=== PATIENT | male | born 1965 | race Caucasian/White ===

== ENCOUNTER 2018-04-20 08:24 | Day surgery (SDC) | payer MEDICARE ==
[~2018-04-20] VITALS: Ht 170.2 cm; Wt 81.9 kg
[~2018-04-20 08:24] MED LIST: 00186-0372-20 IH; CENTRUM SILVER1 CTB PO; EYE DROP OU; LIORESAL 1010 MG/TAB PO; NORCO 325 MG-7.1 TAB PO; OXYCONTIN 10MG10 MG PO; OXYCONTIN30 MG PO; RT SPIRIVA18 MCG IH; VENTOLIN0.09 MG IH
[2018-04-20] MEDS ORDERED: BUSPAR DIVIDOSE15 MG PO (08:45)
[2018-04-20] MEDS ORDERED: BENTYL 10MG10 MG/CAP PO (08:46)
[2018-04-20] MEDS ORDERED: ARTHROTEC 775 MG/TAB PO (08:46)
[2018-04-20] MEDS ORDERED: NEURONTIN100 MG/CAP PO (08:47)
[2018-04-20] MEDS ORDERED: PRILOSEC 20MG20 MG PO (08:47)
[2018-04-20] MEDS ORDERED: PROBIOTIC FORMU1 CAP PO (08:48)
[2018-04-20] MEDS ORDERED: XALATAN EYE DROPS OD (08:48)
[2018-04-20 09:15] VITALS: BP 117/90; PULSE 61; TEMP 99
[2018-04-20 10:30] VITALS: BP 134/86; PULSE 58; TEMP 97.5
[2018-04-20 10:45] VITALS: BP 127/78; PULSE 55
[2018-04-20 11:00] VITALS: BP 134/92; PULSE 51
== END 2018-04-20 11:25 | disposition home or self-care (01) ==
LOC: SDCO 08:24
DX: K63.5 Polyp of colon (principal); K57.30 Diverticulosis of large intestine without perforation or abscess without bleeding; K64.8 Other hemorrhoids; K29.30 Chronic superficial gastritis without bleeding; K21.9 Gastro-esophageal reflux disease without esophagitis; A04.72 Enterocolitis due to Clostridium difficile, not specified as recurrent; J44.9 Chronic obstructive pulmonary disease, unspecified; G89.29 Other chronic pain; M54.9 Dorsalgia, unspecified
CPT/HCPCS: J2704; J3010; J7030

== ENCOUNTER → 2020-03-26 | Outpatient (CLI) | payer MEDICARE, MEDICAID ==
[~2020-03-26] MED LIST changes: +ARTHROTEC 775 MG/TAB PO; +BENTYL 10MG10 MG/CAP PO; +BUSPAR DIVIDOSE15 MG PO; +NEURONTIN100 MG/CAP PO; +PRILOSEC 20MG20 MG PO; +PROBIOTIC FORMU1 CAP PO; +XALATAN EYE DROPS OD
== END ==
LOC: COL.RAD 11:08
DX: M47.27 Other spondylosis with radiculopathy, lumbosacral region (principal); M51.17 Intervertebral disc disorders with radiculopathy, lumbosacral region; M51.14 Intervertebral disc disorders with radiculopathy, thoracic region

== ENCOUNTER → 2020-05-08 | Outpatient (CLI) | payer MEDICARE, MEDICAID | LOC: MHCPAIN 07:54 | DX: M47.817 Spondylosis without myelopathy or radiculopathy, lumbosacral region (principal); M54.5 Low back pain; M53.3 Sacrococcygeal disorders, not elsewhere classified; G89.29 Other chronic pain; M54.16 Radiculopathy, lumbar region | CPT/HCPCS: G0463 ==

== ENCOUNTER → 2020-05-17 | Outpatient (CLI) | payer MEDICARE, MEDICAID | LOC: MHCPAIN 08:07 | DX: M47.817 Spondylosis without myelopathy or radiculopathy, lumbosacral region (principal); M54.16 Radiculopathy, lumbar region | CPT/HCPCS: J1100; Q9967 ==

== ENCOUNTER → 2021-02-05 | Outpatient (CLI) | payer MEDICARE, MEDICAID | LOC: MHCPAIN 12:47 | DX: M47.817 Spondylosis without myelopathy or radiculopathy, lumbosacral region (principal); M54.5 Low back pain; M53.3 Sacrococcygeal disorders, not elsewhere classified; G89.29 Other chronic pain | CPT/HCPCS: G0463 ==

== ENCOUNTER → 2021-02-11 | Outpatient (CLI) | payer MEDICARE, MEDICAID | LOC: MHCPAIN 12:01 | DX: M47.817 Spondylosis without myelopathy or radiculopathy, lumbosacral region (principal); M54.5 Low back pain; M53.3 Sacrococcygeal disorders, not elsewhere classified ==

== ENCOUNTER → 2021-03-25 | Outpatient (CLI) | payer MEDICARE, MEDICAID | LOC: MHCPAIN 09:49 | DX: M70.62 Trochanteric bursitis, left hip (principal); M25.552 Pain in left hip; M54.5 Low back pain; M53.3 Sacrococcygeal disorders, not elsewhere classified | CPT/HCPCS: G0463 ==

== ENCOUNTER → 2021-04-02 | Outpatient (CLI) | payer MEDICARE, MEDICAID | LOC: MHCPAIN 08:55 | DX: M70.62 Trochanteric bursitis, left hip (principal); M25.552 Pain in left hip; M79.18 Myalgia, other site; M54.5 Low back pain; M53.3 Sacrococcygeal disorders, not elsewhere classified | CPT/HCPCS: J1040 ==

== ENCOUNTER → 2022-10-15 | Outpatient (CLI) | payer MEDICARE, MEDICAID ==
[~2022-10-15] MED LIST changes: +ALBUTEROL0.83 MG/ML IH; +CARAFATE 1GM1 G PO; +DUPIXENT300 MG/2 M SQ; +PERIDEX (CHLOR480 ML MM; +PROTONIX 40MG T40 MG PO; +SYNTHROID0.075 MG/T PO; +TRELEGY ELLIPT1 EACH IH
== END ==
LOC: COL.RAD 08:00
DX: N28.89 Other specified disorders of kidney and ureter (principal); J98.09 Other diseases of bronchus, not elsewhere classified; J98.4 Other disorders of lung
CPT/HCPCS: Q9967

== ENCOUNTER 2022-10-21 07:56 | Day surgery (SDC) | payer MEDICARE, MEDICAID ==
[~2022-10-21] VITALS: Ht 170.2 cm; Wt 68.2 kg
[~2022-10-21 07:56] MED LIST changes: -ALBUTEROL0.83 MG/ML IH; -CARAFATE 1GM1 G PO; -DUPIXENT300 MG/2 M SQ; -PERIDEX (CHLOR480 ML MM; -PROTONIX 40MG T40 MG PO; -SYNTHROID0.075 MG/T PO; -TRELEGY ELLIPT1 EACH IH
[2022-10-21] MEDS ORDERED: SYNTHROID0.075 MG/T PO (08:43)
[2022-10-21] MEDS ORDERED: PERIDEX (CHLOR480 ML MM (08:44)
[2022-10-21] MEDS ORDERED: TRELEGY ELLIPT1 EACH IH (08:44)
[2022-10-21] MEDS ORDERED: PROTONIX 40MG T40 MG PO (08:45)
[2022-10-21] MEDS ORDERED: CARAFATE 1GM1 G PO (08:45)
[2022-10-21] MEDS ORDERED: DUPIXENT300 MG/2 M SQ (08:46)
[2022-10-21] MEDS ORDERED: ALBUTEROL0.83 MG/ML IH (08:47)
[2022-10-21 09:07] VITALS: BP 124/90; PULSE 79; TEMP 97.8
[2022-10-21 09:55] VITALS: BP 111/74; PULSE 65; TEMP 97.6
--- NOTE | 2022-10-21 09:55 | NUR ---
PATIENT AMBULATED TO RESTROOM FOLLOWING PROCEDURE, GAIT STEADY. PATIENT ALERT AND ORIENTED, DENIES PAIN AND NAUSEA. PATIENT VERBALIZED PASSING GAS AND MUCOUS IN RESTROOM. AMBULATED WITH STEADY GAIT TO CHAIR. BREATHING REGULAR AND UNLABORED. SEE CHART FOR VITAL SIGNS. PATIENT HAD WATER AND CHOCOLATE PUDDING, BOTH TOLERATED WELL WITH NO DYSPHAGIA. VISITED WITH PATIENT IN THE ROOM TO DISCUSS PROCEDURE. CALL LIGHT IN REACH.
[2022-10-21 10:00] VITALS: BP 125/91; PULSE 58
[2022-10-21 10:15] VITALS: BP 119/74; PULSE 60
[2022-10-21 10:30] VITALS: BP 115/69; PULSE 59
--- NOTE | 2022-10-21 10:30 | NUR ---
PATIENT DENIES PAIN AND NAUSEA. DISCHARGE TEACHING COMPLETED WITH PRINTED EDUCATION AND INSTRUCTIONS SENT HOME WITH PATIENT. PATIENT SPOUSE BRADY PRESENT, BOTH VERBALIZED UNDERSTANDING OF TEACHING. IV REMOVED. PATIENT DISCHARGED HOME WITH BRADY TRANSPORT.
== END 2022-10-21 10:53 | disposition home or self-care (01) ==
LOC: SDCO 07:56
DX: K29.31 Chronic superficial gastritis with bleeding (principal); D12.0 Benign neoplasm of cecum; K64.0 First degree hemorrhoids; Z87.891 Personal history of nicotine dependence; K21.9 Gastro-esophageal reflux disease without esophagitis; Z79.899 Other long term (current) drug therapy; Z28.310 Unvaccinated for COVID-19; Z28.9 Immunization not carried out for unspecified reason
CPT/HCPCS: J2704; J7120

== ENCOUNTER 2023-10-06 06:35 | Day surgery (SDC) | payer MEDICARE, MEDICAID ==
[~2023-10-06] VITALS: Ht 170.2 cm; Wt 62.5 kg
[2023-10-06] VITALS (11 sets, daily range): BP systolic 98–142; BP diastolic 59–96; PULSE 56–98; TEMP 97.2–99.3
[~2023-10-06 06:35] MED LIST changes: +ALBUTEROL0.83 MG/ML IH; +Acetaminophen 500 MG TAB PO SCH; +CARAFATE 1GM1 G PO; +Celecoxib 200 MG CAP PO SCH; +DUPIXENT300 MG/2 M SQ; +Famotidine 20 MG TAB PO SCH; +Gabapentin 100 MG CAP PO SCH; +LR 1,000 ML IV SCH; +Meclizine 25 MG TAB PO SCH; +PERIDEX (CHLOR480 ML MM; +PROTONIX 40MG T40 MG PO; +SYNTHROID0.075 MG/T PO; +TRELEGY ELLIPT1 EACH IH; +diazePAM 10 MG TAB PO SCH
[2023-10-06] MEDS ORDERED: fentaNYL 50 MCG/ML 5 ML VIAL ONE (06:54)
[2023-10-06] MEDS ORDERED: Rocuronium 50 MG/5 ML Multi-Dose VIAL ONE ×2 (06:54→09:05)
[2023-10-06] MEDS ORDERED: Succinylcholine PF 100 MG/5 ML SYRINGE/POLY AMP IV ONE (06:54)
[2023-10-06] MEDS ORDERED: Ketamine 500 MG/10 ML VIAL ONE (06:55)
[2023-10-06 07:00] LABS: HEMATOCRIT 42.1 % (42.0-52.0); HEMOGLOBIN 14.9 g/dl (13.5-18.0); MEAN CELL VOLUME 88 fl (80.0-100.0); MEAN CORPUSCULAR HEMOGLOBIN 31 pg (27-31); MEAN CORPUSCULAR HGB CONC 35 g/dl (33.0-37.0); MEAN PLATELET VOLUME 9.5 fl (7.4-10.4); PLATELET COUNT 260 K/mm3 (130-400); RED BLOOD COUNT 4.81 M/mm3 (4.20-5.60); REDCELL DISTRIBUTION WIDTH-CV 12.3 % (11.5-14.5)
[2023-10-06 07:20] LABS: CALCIUM 9.6 mg/dL (8.4-10.2); CREATININE, serum 0.89 mg/dL (0.72-1.25); POTASSIUM 4.3 mmol/L (3.5-4.5)
[2023-10-06] MEDS ORDERED: LR 1,000 ML IV SCH (07:30)
[2023-10-06] MEDS ORDERED: Ondansetron 4 MG/2 ML VIAL IV PRN ×2 (07:30→08:45)
[2023-10-06] MEDS ORDERED: Morphine 4 MG/ML VIAL IV PRN ×3 (07:30→15:45)
[2023-10-06] MEDS ORDERED: oxyCODONE 5 MG TAB PO PRN (07:30)
[2023-10-06] MEDS ORDERED: Naloxone 0.4 MG/ML VIAL IV PRN (07:30)
[2023-10-06] MEDS ORDERED: Ondansetron 4 MG/2 ML VIAL ONE (07:46)
[2023-10-06] MEDS ORDERED: NS 10 ML IV ONE (07:46)
[2023-10-06] MEDS ORDERED: dexAMETHasone 10 MG/ML VIAL ONE (07:46)
[2023-10-06] MEDS ORDERED: Topical Skin Adhesive 1 EACH (1 ML) TOP ONE (07:50)
[2023-10-06] MEDS ORDERED: Acetaminophen 500 MG TAB PO SCH (08:18)
[2023-10-06] MEDS ORDERED: Meperidine 50 MG/ML 1 ML VIAL IV PRN (08:45)
[2023-10-06] MEDS ORDERED: HYDROmorphone 2 MG/1 ML VIAL IV PRN (08:45)
[2023-10-06] MEDS ORDERED: hydrALAZINE 20 MG/ML 1 ML VIAL IV PRN (08:45)
[2023-10-06] MEDS ORDERED: Fluticasone/Umeclidinium/Vilanterol **** subs to Budesonide + Umeclid/Vilant IH SCH (09:00)
[2023-10-06] MEDS ORDERED: LR 1,000 ML IV ONE (09:19)
[2023-10-06] MEDS ORDERED: Gabapentin 100 MG CAP PO ONE (11:18)
--- NOTE | 2023-10-06 11:25 | NUR ---
Patient to room 349 from the PACU, at the bedside. A&Ox4. VSS 2L NC O2, post op VS monitored. IV CDI, fluids by gravity. Pillow on abdomen, 6xlap sites, CDI. SCD bilateral lower. Denies pain, reports discomfort with motion. Nurse oriented the patient to location, call light and room. No further needs expressed. Call light within reach
[2023-10-06] MEDS ORDERED: Albuterol 0.083% Neb Soln 2.5 MG/3 ML UD IH PRN (11:45)
[2023-10-06] MEDS ORDERED: fentaNYL 50 MCG/ML 2 ML VIAL ONE (13:34)
[2023-10-06] MEDS ORDERED: Baclofen 10 MG TAB PO SCH (14:00)
[2023-10-06] MEDS ORDERED: Mag/Al Hydrox/Simeth Susp 30 ML CUP PO PRN (15:30)
[2023-10-06] MEDS ORDERED: OXYCODONE 10 MG PO SCH (15:36)
[2023-10-06] MEDS ORDERED: HYDROcodone/Acetaminophen 10-325 MG TAB PO PRN (15:45)
[2023-10-06] MEDS ORDERED: Acetaminophen 325 MG TAB PO PRN (15:45)
[2023-10-06] MEDS ORDERED: Budesonide Neb Susp 0.5 MG/2 ML AMP IH SCH (19:00)
--- NOTE | 2023-10-06 20:00 | NUR ---
PT REFUSING SCDS.
--- NOTE | 2023-10-06 21:15 | NUR ---
PT IN BED, IS ALERT AND ORIENTED X4, TALKING WITH HIS BROTHER ON SPEAKER. HAS IVF TO RT WRIST INFUSING WITHOUT PROBLEM. VOIDING PER URINAL, YELLOW URINE. ABD WITH 6 LAP SITES, GLUED AND DRY. REPORTS UPPER ABD PAIN, REFUSES HIS SCHEDULED OXYCONTIN IT MAKES HIM STAY AWAKE. OFFERED MORPHINE IV, TAKES 2MG AT THIS TIME. MEDICATED WITH BACLOFEN PER HIS HOME ROUTINE. PT DENIES FLATUS, TAKING CLEAR LIQUIDS WITHOUT N/V.
[2023-10-07 00:30] VITALS: BP_SYST 119
[2023-10-07 00:59] VITALS: BP 119/71; PULSE 53; TEMP 97.1
[2023-10-07 04:18] VITALS: BP_SYST 171
--- NOTE | 2023-10-07 04:18 | NUR ---
PT REPORTS PAIN 04/16 TO ABD. OFFERED NORCO, HE REFUSED STATING "THAT WILL TAKE TOO LONG TO WORK, THE MORPHINE WORKED FINE LAST TIME". MEDICATED WITH MORPHINE 2MG IVP NOW.
[2023-10-07 04:21] VITALS: BP 171/83; PULSE 55; TEMP 96.8
--- NOTE | 2023-10-07 06:38 | NUR ---
PT REPORTS ABD PAIN, NORCO 10MG GIVEN AT THIS TIME.
[2023-10-07 07:08] LABS: BASO # 0.1 K/mm3 (0.0-0.2); BASO % 0.7 % (0.0-2.0); EOS # 0.2 K/mm3 (0.0-0.7); EOS % 2.2 % (0.0-4.0); GRAN # 6.8 K/mm3 (1.4-6.5); GRAN % 66.3 % (42.2-75.2); HEMATOCRIT 39.5 % (42.0-52.0); HEMOGLOBIN 13.6 g/dl (13.5-18.0); LYMPH # 2.1 K/mm3 (1.2-3.4); LYMPH % 20.8 % (20.0-51.0); MEAN CELL VOLUME 89 fl (80.0-100.0); MEAN CORPUSCULAR HEMOGLOBIN 31 pg (27-31); MEAN CORPUSCULAR HGB CONC 34 g/dl (33.0-37.0); MEAN PLATELET VOLUME 10.2 fl (7.4-10.4); MONO % 9.6 % (1.7-9.3); PLATELET COUNT 218 K/mm3 (130-400); RED BLOOD COUNT 4.46 M/mm3 (4.20-5.60); REDCELL DISTRIBUTION WIDTH-CV 12.4 % (11.5-14.5)
[2023-10-07 07:11] LABS: CALCIUM 8.7 mg/dL (8.4-10.2); CREATININE, serum 0.84 mg/dL (0.72-1.25); POTASSIUM 3.9 mmol/L (3.5-4.5)
[2023-10-07 07:42] VITALS: BP 150/78; PULSE 57; TEMP 98.1
[2023-10-07] MEDS ORDERED: Umeclidinium/Vilanterol 62.5-25 MCG INHALATION/INHALER IH SCH (09:00)
--- NOTE | 2023-10-07 09:00 | NUR ---
pt a&ox3 resting in bed. pt reports pain in abdomen a 3/10. pt denies passing gas, urinating without difficulty. x6 lap sites are cdi. pt tolerating clear liquids. fluids infusing into right wrist. pt denies needs at this time. call light in reach.
[2023-10-07 09:11] VITALS: BP_SYST 150
--- NOTE | 2023-10-07 11:05 | NUR ---
discharge instructions given to pt and , all questions answered. right wrist INT discontinued without difficulty. pt inquired about recieving a rx for [place] for discharge, spoke with Michele HASKINS with urology and he will speak to Dr Crouch for approval.
--- NOTE | 2023-10-07 13:40 | NUR ---
pt escorted by wheelchair to personal vehicle.
== END 2023-10-07 13:40 | disposition home or self-care (01) ==
LOC: SDCO 06:35 → SURG 11:27 → SDCO 10-07 13:40
PROVIDERS: Nurse Anesthetist, Certified Registered; Urology
DX: C64.1 Malignant neoplasm of right kidney, except renal pelvis (principal); G89.18 Other acute postprocedural pain; K21.9 Gastro-esophageal reflux disease without esophagitis; K22.70 Barrett's esophagus without dysplasia; Z79.899 Other long term (current) drug therapy
CPT/HCPCS: OP; A4314; A9284; J0330; J0690; J1100; J1170; J2175; J2270; J2405; J2704; J3010; J7120

== ENCOUNTER → 2023-12-24 | Outpatient (CLI) | payer MEDICARE, MEDICAID ==
[~2023-12-24] MED LIST changes: -Acetaminophen 500 MG TAB PO SCH; +Atropine 1 MG/10 ML SYRINGE IV ONE; -Celecoxib 200 MG CAP PO SCH; -Famotidine 20 MG TAB PO SCH; -Gabapentin 100 MG CAP PO SCH; +Glycopyrrolate 0.2 MG/ML 1 ML VIAL ONE; +Iohexol 300 - 10 ML VIAL ONE; -LR 1,000 ML IV SCH; -Meclizine 25 MG TAB PO SCH; -diazePAM 10 MG TAB PO SCH; +ePHEDrine 50 MG/10 ML VIAL IV ONE
== END ==
LOC: MHCPAIN 07:40
DX: M46.1 Sacroiliitis, not elsewhere classified (principal); M53.3 Sacrococcygeal disorders, not elsewhere classified; M54.50 Low back pain, unspecified
CPT/HCPCS: G0260; J0461; J0665; J1010; Q9967